=== PATIENT | male | born 1935 | race Caucasian/White ===

== ENCOUNTER 2017-09-08 18:00 | Inpatient (IN) | payer MEDICARE, BC ==
[~2017-09-08] VITALS: Ht 175.3 cm; Wt 75.6 kg
[2017-09-08 18:27] LABS: BASOPHILS % (AUTO) 0.6 % (0-1); EOSINOPHILS # (AUTO) 0.2 X10'3 (0-0.9); EOSINOPHILS % (AUTO) 3.1 % (0-6); HEMATOCRIT 41.2 % (42.0-52.0); HEMOGLOBIN 14.7 g/dl (14.0-17.9); LYMPHOCYTES # (AUTO) 2.1 X10'3 (1.1-4.8); LYMPHOCYTES % (AUTO) 34.4 % (21-51); MEAN CORPUSCULAR HEMOGLOBIN 33.3 PG (27.0-31.0); MEAN CORPUSCULAR HGB CONC 35.7 % (33.0-36.5); MEAN CORPUSCULAR VOLUME 93.3 FL (78-98); MEAN PLATELET VOLUME 7.6 FL (7.4-10.4); MONOCYTES # (AUTO) 0.6 X10'3 (0-0.9); MONOCYTES % (AUTO) 9.8 % (2-12); NEUTROPHILS # (AUTO) 3.1 X10'3 (1.8-7.7); NEUTROPHILS % (AUTO) 52.1 % (42-75); PLATELET COUNT 221 X10'3 (140-440); RED BLOOD COUNT 4.42 X10'6 (4.70-6.10); RED CELL DISTRIBUTION WIDTH 11.9 % (11.5-14.5)
[2017-09-08 18:39] LABS: PARTIAL THROMBOPLASTIN TIME 26 SECONDS (22-32); PROTHROMBIN TIME 9.9 SECONDS (9.0-12.0)
[2017-09-08 18:44] LABS: ALANINE AMINOTRANSFERASE 27 U/L (12-78); ALBUMIN 3.9 G/DL (3.4-5.0); ALBUMIN/GLOBULIN RATIO 1.1 (1.1-1.5); ALKALINE PHOSPHATASE 120 IU/L (46-116); ANION GAP 9 (8-16); ASPARTATE AMINO TRANSFERASE 17 U/L (10-37); BILIRUBIN,TOTAL 0.4 MG/DL (0.1-1.0); BLOOD UREA NITROGEN 30 MG/DL (7-18); BUN/CREATININE RATIO 21.6 (5.4-32.0); CALCIUM 9.1 MG/DL (8.5-10.1); CHLORIDE 100 MMOL/L (99-107); CREATININE 1.39 MG/DL (0.60-1.10); GLUCOSE 165 MG/DL (70-104); SODIUM 142 MMOL/L (135-145); TOTAL CARBON DIOXIDE 32.6 MMOL/L (24-32); TOTAL PROTEIN 7.5 G/DL (6.4-8.2); eGFR 49 ML/MIN
[2017-09-08 18:49] LABS: POTASSIUM 2.6 MMOL/L (3.5-5.1)
[2017-09-08] MEDS ORDERED: potassium Cl 10 mEq/100mL bag IV ONE (20:50)
[2017-09-08] MEDS ORDERED: magnesium 2GM in 50ml NS 50 ML IV ONE (20:50)
[2017-09-08] MEDS ORDERED: potassium Cl 20 mEq SR tablet PO ONE (20:50)
[2017-09-08] MEDS ORDERED: potassium 10mEq/100ml NS w/LIDOcaine (10mg/bag) IV ONE (20:55)
[2017-09-08] MEDS ORDERED: aspirin 325mg tablet PO ONE (21:05)
[2017-09-08] MEDS ORDERED: CHLO25TA2 PO (22:39)
[2017-09-08] MEDS ORDERED: magnesium Cl slow-release 64mg tablet PO PRN (22:40)
[2017-09-08] MEDS ORDERED: acetaminophen 325mg tablet PO PRN (22:40)
[2017-09-08] MEDS ORDERED: ondansetron/PF 4mg/2ml inj IV PRN (22:40)
[2017-09-08] MEDS ORDERED: potassium Cl 20 mEq SR tablet PO PRN (22:40)
[2017-09-08] MEDS ORDERED: magnesium hydroxide 30ml (MOM) UD suspension PO PRN (22:40)
[2017-09-08] MEDS ORDERED: magnesium 4gm in 100ml NS 100 ML IV PRN (22:40)
[2017-09-08] MEDS ORDERED: potassium Cl 40MEQ/NS 500ml 500 ML IV PRN ×2 (22:40)
[2017-09-08] MEDS ORDERED: magnesium 2GM in 50ml NS 50 ML IV PRN (22:40)
[2017-09-08] MEDS ORDERED: mag hydrox/Alum hydrox/simeth 30ml oral suspension PO PRN (22:40)
[2017-09-08 23:11] LABS: CHOL/HDL RATIO 5.1 (0.00-4.99); CHOLESTEROL 205 MG/DL (0-200); HDL CHOLESTEROL 40 MG/DL (35-60); LDL CHOLESTEROL 133 MG/DL (50-100); TRIGLYCERIDES 377 MG/DL (20-135)
[2017-09-08] MEDS: normal saline 1000ml 1,000 ML IV SCH (23:24)
[2017-09-08 23:50] VITALS: BP 175/61
[2017-09-09] MEDS: potassium Cl 20 mEq SR tablet PO PRN ×2 (01:26→05:42)
[2017-09-09 04:00] VITALS: BP 150/59
[2017-09-09 05:00] VITALS: BP 150/59
[2017-09-09] MEDS ORDERED: aspirin 81mg tablet.DR PO SCH (08:00)
[2017-09-09] MEDS ORDERED: heparin, porcine 5000 units/ml vial SQ SCH (08:00)
[2017-09-09] MEDS ORDERED: K and/or MAG REPLACEMENT MC SCH (08:00)
[2017-09-09 08:54] LABS: BASOPHILS % (AUTO) 0.3 % (0-1); EOSINOPHILS # (AUTO) 0.2 X10'3 (0-0.9); EOSINOPHILS % (AUTO) 2.8 % (0-6); HEMATOCRIT 38.8 % (42.0-52.0); HEMOGLOBIN 13.9 g/dl (14.0-17.9); LYMPHOCYTES # (AUTO) 1.4 X10'3 (1.1-4.8); LYMPHOCYTES % (AUTO) 26.6 % (21-51); MEAN CORPUSCULAR HEMOGLOBIN 33.3 PG (27.0-31.0); MEAN CORPUSCULAR HGB CONC 35.8 % (33.0-36.5); MEAN CORPUSCULAR VOLUME 93.1 FL (78-98); MEAN PLATELET VOLUME 7.6 FL (7.4-10.4); MONOCYTES # (AUTO) 0.4 X10'3 (0-0.9); MONOCYTES % (AUTO) 8.1 % (2-12); NEUTROPHILS # (AUTO) 3.3 X10'3 (1.8-7.7); NEUTROPHILS % (AUTO) 62.2 % (42-75); PLATELET COUNT 196 X10'3 (140-440); RED BLOOD COUNT 4.17 X10'6 (4.70-6.10); RED CELL DISTRIBUTION WIDTH 12.3 % (11.5-14.5); WHITE BLOOD COUNT 5.3 X10'3 (4.5-11.0)
[2017-09-09 09:31] LABS: ALANINE AMINOTRANSFERASE 21 U/L (12-78); ALBUMIN 3.6 G/DL (3.4-5.0); ALBUMIN/GLOBULIN RATIO 1.1 (1.1-1.5); ALKALINE PHOSPHATASE 81 IU/L (46-116); ANION GAP 6 (8-16); ASPARTATE AMINO TRANSFERASE 15 U/L (10-37); BILIRUBIN,TOTAL 0.6 MG/DL (0.1-1.0); BLOOD UREA NITROGEN 23 MG/DL (7-18); BUN/CREATININE RATIO 19.7 (5.4-32.0); CALCIUM 8.7 MG/DL (8.5-10.1); CHLORIDE 103 MMOL/L (99-107); CREATININE 1.17 MG/DL (0.60-1.10); GLUCOSE 189 MG/DL (70-104); MAGNESIUM 2.1 MG/DL (1.5-2.4); POTASSIUM 3.3 MMOL/L (3.5-5.1); SODIUM 141 MMOL/L (135-145); TOTAL CARBON DIOXIDE 32.5 MMOL/L (24-32); TOTAL PROTEIN 6.9 G/DL (6.4-8.2); TROPONIN I < 0.04 NG/ML (0.0-0.05); eGFR 60 ML/MIN
[2017-09-09 10:00] LABS: CHOL/HDL RATIO 4.6 (0.00-4.99); CHOLESTEROL 181 MG/DL (0-200); HDL CHOLESTEROL 39 MG/DL (35-60); LDL CHOLESTEROL 122 MG/DL (50-100); TRIGLYCERIDES 149 MG/DL (20-135)
[2017-09-09] MEDS: normal saline 1000ml 1,000 ML IV SCH (12:28)
[2017-09-09 14:00] VITALS: BP 140/57
[2017-09-10] MEDS ORDERED: atorvastatin 20mg tablet PO SCH (08:00)
== END 2017-09-09 17:35 | disposition home or self-care (01) | DRG 683 ==
LOC: ER 18:01 → ED HOLD 22:36 → ORTHO 4S 09-09
PROVIDERS: ADMIT Internal Medicine; ATTEND Legal Medicine
DX: N17.9 Acute kidney failure, unspecified (principal); G45.9 Transient cerebral ischemic attack, unspecified; R00.1 Bradycardia, unspecified; H53.2 Diplopia; E87.6 Hypokalemia; E78.5 Hyperlipidemia, unspecified; I10 Essential (primary) hypertension; Z79.899 Other long term (current) drug therapy; Z82.3 Family history of stroke; Z82.49 Family history of ischemic heart disease and other diseases of the circulatory system
CPT/HCPCS: 36415; 70450; 70544; 70551; 71045; 80053; 80061; 83735; 84484; 85025; 85610; 85651; 85730; 87070; 93005; 93306; 93880; 96360; 96361; 97116; 97161; 97530; 99285; J1644; J3475; J3480; J7030